=== PATIENT | female | born 1970 ===

== ENCOUNTER 2021-09-30 10:37 | Outpatient (CLI) | payer OTHER, SELFPAY ==
--- NOTE | 2021-09-30 11:30 | NEURO_ITS ---
Impression: # Complains of pain in lower extremities, left more than right. 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 # Needle/EMG exam revealed no acute changes. # Clinical correlation recommended. Nerve Conduction Studies Anti Sensory Summary Table Stim Site NR Peak (ms) P-T Amp (?V) Site1 Site2 Delta-P (ms) Dist (cm) Jaskaran (m/s) Left Sup Fibular Anti Sensory (Ant Lat Mall) NO RESPONSE 14 cm NR 14 cm Ant Lat Mall 16.0 Right Sup Fibular Anti Sensory (Ant Lat Mall) NO RESPONSE 14 cm NR 14 cm Ant Lat Mall 16.0 Left Sural Anti Sensory (Lat Mall) NO RESPONSE Calf NR Calf Lat Mall 16.0 Right Sural Anti Sensory (Lat Mall) NO RESPONSE Calf NR Calf Lat Mall 16.0 Motor Summary Table Stim Site NR Onset (ms) O-P Amp (mV) Site1 Site2 Delta-0 (ms) Dist (cm) Jaskaran (m/s) Left Peroneal Motor (Vastus Med) Ankle 4.1 2.3 Popit Ankle 9.5 42.0 44 Popit 13.6 2.6 Right Peroneal Motor (Vastus Med) Ankle 4.2 1.3 Popit Ankle 9.7 40.0 41 Popit 13.9 1.5 Left Tibial Motor (Abd Shin Brev) NO RESPONSE Ankle NR Knee NR Right Tibial Motor (Abd Shin Brev) Ankle 5.2 0.3 Knee Ankle 11.2 45.0 40 Knee 16.4 0.1 F Wave Studies NR F-Lat (ms) L-R F-Lat (ms) Left Peroneal (Mrkrs) (EDB) 54.12 0.97 Right Peroneal (Mrkrs) (EDB) 55.09 0.97 Left Tibial (Mrkrs) (Abd Hallucis) DISPERSED RESPONSE NR Right Tibial (Mrkrs) (Abd Hallucis) DISPERSED RESPONSE NR EMG Side Muscle Nerve Root Ins Act Fibs Amp Dur Recrt Comment Right AntTibialis Dp Br Fibular L4-5 Nml Nml Nml Nml Nml Right Gastroc Tibial S1-2 Nml Nml Nml Nml Nml Right Fibularis Long Sup Br Fibular L5-S1 Nml Nml Nml Nml Nml Right Flex Dig Long Tibial L5-S2 Nml Nml Nml Nml Nml Right Ext Dig Brev Dp Br Fibular L5, S1 Nml Nml Nml Nml Nml Left AntTibialis Dp Br Fibular L4-5 Nml Nml Nml Nml Nml Left Gastroc Tibial S1-2 Nml Nml Nml >12ms Reduced Left Fibularis Long Sup Br Fibular L5-S1 Nml Nml Nml Nml Nml Left Flex Dig Long Tibial L5-S2 Nml Nml Nml >12ms Reduced Left Ext Dig Brev Dp Br Fibular L5, S1 Nml Nml Nml Nml Nml MTDD
== END 2021-09-30 10:38 | disposition home or self-care (01) ==
LOC: ANHNEURO 10:38
DX: G57.51 Tarsal tunnel syndrome, right lower limb (principal); G62.9 Polyneuropathy, unspecified
CPT/HCPCS: 95886; 95910